=== PATIENT | male | born 1960 | race Caucasian/White ===

== ENCOUNTER → 2019-03-21 13:18 | Outpatient (CLI) | payer OTHER, SELFPAY ==
--- NOTE | 2019-03-21 13:54 | DI.RAD.S_ITS ---
PROCEDURE: XR ORBIT RT INDICATIONS: R/o metal in soft tissue prior to MRI TECHNIQUE: Single view of the orbits acquired. COMPARISON: None. FINDINGS: Bones: No fractures; orbital rims appear intact throughout. No suspicious bony lesions. Visualized sinuses appear clear. Soft tissues: No suspicious soft tissue calcifications or densities. IMPRESSION: No metallic foreign body over the orbits is seen. Dictated by: iSmone Mcgovern M.D. on 03/21/2019 at 15:37 Approved by: Simone Mcgovern M.D. on 03/21/2019 at 15:38
--- NOTE | 2019-03-21 13:54 | DI.RAD.S_ITS ---
PROCEDURE: XR ORBIT LT INDICATIONS: R/o metal in soft tissue prior to MRI TECHNIQUE: Single view of the orbits acquired. COMPARISON: None. FINDINGS: Bones: No fractures; orbital rims appear intact throughout. No suspicious bony lesions. Visualized sinuses appear clear. Soft tissues: No suspicious soft tissue calcifications or densities. IMPRESSION: No metallic foreign body found. Dictated by: Simone Mcgovern M.D. on 03/21/2019 at 15:38 Approved by: Simone Mcgovern M.D. on 03/21/2019 at 15:38
[2019-03-21 15:15] LABS: BUN Creatinine Ratio 14.2 (6-22); Blood Urea Nitrogen 17 mg/dL (9-20); Calcium 9.3 mg/dL (8.4-10.2); Carbon Dioxide 29 mmol/L (22-32); Chloride 100 mmol/L (98-107); Cholesterol 207 mg/dL (140-199); Estimated Glomerular Filt Rate > 60.0 mL/min (>60); Glucose 84 mg/dL (70-100); HDL Cholesterol 43 mg/dL (40-60); HEMOLYSIS < 15 (0-50); LDL Cholesterol Calculated 148 mg/dL (<100); Potassium 4.4 mmol/L (3.4-5.1); Sodium 137 mmol/L (137-145); Triglycerides 82 mg/dL (35-150)
[2019-03-21 16:34] LABS: TSH w/ Reflex to FT4 1.84 uIU/mL (0.47-4.68)
== END ==
PROVIDERS: PCP Student in an Organized Health Care Education/Training Program; Referring Provider Student in an Organized Health Care Education/Training Program; Visit Provider Student in an Organized Health Care Education/Training Program
DX: Z13.220 Encounter for screening for lipoid disorders (principal); E29.1 Testicular hypofunction; R53.83 Other fatigue; E66.9 Obesity, unspecified; Z79.899 Other long term (current) drug therapy; Z18.10 Retained metal fragments, unspecified
CPT/HCPCS: 36415; 70200; 80048; 80061; 84443

== ENCOUNTER 2020-01-14 15:05 | Emergency (ER) | payer OTHER, SELFPAY ==
[2020-01-14 15:12] VITALS: BP 163/86; PULSE 63; RESP 16; TEMP 37; O2SAT 98
--- NOTE | 2020-01-14 18:10 | ED.SKABFB ---
HPI - Skin/Abscess/Foreign Bdy General Chief complaint: Skin/Abscess/Foreign Body Stated complaint: Infection in Right Buttox, Not Getting Better Time Seen by Provider: 01/14/20 18:05 Source: patient Mode of arrival: Ambulatory Limitations: no limitations History of Present Illness HPI narrative: 59-year-old male nonsmoker without significant chronic medical problems presents with his and the chief complaint of a worsening abscess on his right buttock. He gives himself testosterone shots in his buttocks in the region of the abscess and it seems likely that this is the source. He denies any chance of broken needle. He has been followed by his PCP and had an I&D and a 10 day course of Doxycycline which he completed a few days ago. He was initially doing much better but some pain and swelling has returned and there is some subtle red streaking coming from the area. He denies any systemic 5 findings such as fever, chills nor nausea or vomiting. He denies much in the way of significant pain or ongoing drainage. She had attempted to see his primary care provider this morning and was seen by the nurse practitioner in the office. After evaluating and consulting with primary physician they agreed to attempt to get an urgent outpatient CT scan to evaluate for significant deep space infection. When they were unsuccessful in obtaining this he was directed to the emergency department. complaint: abscess/boil Onset (ago): week(s) Tetanus up to date: yes Location: buttocks Severity: moderate Quality: aching Pain Consistency: now resolved Relieving factors: none Exacerbating factors: none Context: recent antibiotic Associated symptoms: denies other symptoms Treatments prior to arrival: antibiotic Related Data Previous Rx's Medication Instructions Recorded epinephrine 0.3 mg/0.3 mL 0.3 mg IM ONCE #1 each 06/26/19 injection, auto-injector testosterone cypionate 200 mg/mL 200 mg IM Q2W #5 ml 08/29/19 intramuscular oil doxycycline hyclate 100 mg PO BID #20 tab 01/14/20 Allergies Allergy/AdvReac Type Severity Reaction Status Date / Time Penicillins Allergy Mild rash Verified 01/14/20 08:28 Review of Systems Constitutional Constitutional: Denies chills, Denies fatigue, Denies fever(s), Denies frequent falls, Denies lethargy and Denies weakness Eyes Eyes: Denies change in vision, Denies eye discharge, Denies irritation and Denies loss of vision ENT Ears, Nose, Mouth, and Throat: Denies change in voice, Denies dizziness, Denies neck pain, Denies sore throat and Denies throat swelling Cardiovascular Cardiovascular: Denies chest pain, Denies irregular heart rhythm, Denies lightheadedness, Denies palpitations, Denies dyspnea, Denies dyspnea on exertion and Denies orthopnea Respiratory Respiratory: Denies cough, Denies dyspnea, Denies dyspnea on exertion and Denies wheezing Gastrointestinal Gastrointestinal: Denies abdominal pain, Denies change in bowel habits, Denies diarrhea, Denies nausea and Denies vomiting Musculoskeletal Musculoskeletal: Denies neck pain and Denies numbness Integumentary/Breasts Skin/Breast: Denies pruritus, Reports erythema, Denies rash, Reports skin pain, Reports skin swelling and Reports wounds Neurologic Neurologic: Denies behavioral changes, Denies confusion, Denies dizziness, Denies frequent falls, Denies loss of vision, Denies numbness and Denies weakness Psychiatric Psychiatric: Denies anxiety, Denies behavioral changes, Denies confusion, Denies depression, Denies homicidal ideation and Denies suicidal ideation Endocrine Endocrine: Denies fatigue, Denies flushing and Denies palpitations Hematologic/Lymphatic Hematologic/Lymphatic: Denies easy bruising Allergic/Immunologic Allergic/Immunologic: Denies urticaria, Denies throat swelling and Denies wheezing Patient History Medical History Cellulitis Chicken pox (~1975) Colon polyps (~2008) Scoliosis (~1974) Surgical History Anesthesia History of colonoscopy Family History Father Diabetes mellitus History of heart disease Social History Smoking Status: Never smoker Smoking Status: Never smoker Exam Narrative Exam Narrative: GEN: AOx3 and in mild distress EYES: Pupils are equal, round, and reactive to light and accommodation. Extraoccular muscles are intact bilaterally. There is no subconjunctival hemorrhage or exudate. CHEST: Lungs are clear to auscultation bilaterally and free of wheezes, rales, or rhonchi. Heart rate is regular rhythm, there are no murmurs, clicks, rubs, or gallops. There is no chest wall tenderness. ABD: Abdomen is soft and nontender. There is no guarding or rebound. Bowel sounds are normal in all 4 quadrants. There is no mass or organomegaly. EXT: Full painless ROM of all extremities with no loss of sensation or strength. SKIN: 2x2 cm area of erythema, induration consistent with abscess. Very minimal surrounding erythema. Minimal fluctuance. No pain on deep palpation of surrounding tissue. No pain with ambulation, low suspicion of a deepspace infection. Otherwise visible skin is warm, pink, and dry. No erythema or rash Initial Vital Signs Initial Vital Signs: Vital Signs Temperature 98.6 F 01/14/20 15:12 Pulse Rate 63 01/14/20 15:12 Respiratory Rate 16 01/14/20 15:12 Blood Pressure 163/86 H 01/14/20 15:12 Pulse Oximetry 98 01/14/20 15:12 Procedures Abscess I/D I&D #1: Site: other (R lateral buttock) Side (if applicable): right Local Anesthetic: bupivacaine 0.5% and with epi Amount of anesthesia used (mL): 4 Technique: incised with #11 blade Amount of fluid expressed (mL): 8 Irrigation: No Packing used?: none Course Orders Ordered: ED Orders 01/14/20 18:38 CT pelvis w con Stat 01/14/20 19:00 Basic Metabolic Panel Stat Complete Blood Count AUTO DIFF Stat Discontinued Medications Bupivacaine HCl/Epinephrine Bitart (Bupivacaine 0.5% W/ Epi (Pf) 30 Ml Vial) 5 ml SUBCUT NOW ONE Stop: 01/14/20 20:16 Last Admin: 01/14/20 20:23 Dose: 5 ml Documented by: MARY KAY Doxycycline Hyclate (Doxycycline Hyclate 100 Mg Tablet) 100 mg PO NOW ONE Stop: 01/14/20 20:26 Last Admin: 01/14/20 20:44 Dose: 100 mg Documented by: MARY KAY Sodium Chloride (Normal Saline 0.9%) 500 mls @ 1,000 mls/hr IV BOLUS ONE Stop: 01/14/20 19:06 Last Infusion: 01/14/20 20:20 Dose: 0 mls/hr Documented by: MARY KAY Admin: 01/14/20 19:36 Dose: 1,000 mls/hr Documented by: MARY KAY Vital Signs Vital signs: Vital Signs - 8 hr 01/14/20 20:47 Pulse Rate 53 L Respiratory Rate 16 Blood Pressure 162/93 H Pulse Oximetry 100 MDM - Skin/Abscess/Foreign Bdy Lab Data Result diagrams: 01/14/20 19:00 01/14/20 19:00 Labs: Lab Results 01/14/20 01/14/20 Range/Units 19:00 19:00 WBC 9.0 (4.5-11.0) X10^3/uL RBC 5.15 (4.5-5.9) X10^6/uL Hgb 15.6 (13.5-17.5) g/dL Hct 46.4 (41-53) % MCV 90.0 (80-100) fL MCH 30.3 (26-34) PG MCHC 33.6 (30-36) % RDW 13.7 (11.6-14.8) % Plt Count 250 (150-400) X10^3/uL Neut % (Auto) 61.9 (50-75) % Lymph % (Auto) 28.7 (25-40) % [place] % (Auto) 7.3 (3-14) % Eos % (Auto) 1.4 L (2-4) % Baso % (Auto) 0.7 (0-2) % Neut # (Auto) 5600 (2671-9956) /uL Lymph # (Auto) 2600 (8025-4156) /uL [place] # (Auto) 700 (0-900) /uL Eos # (Auto) 100 (0-450) /uL Baso # (Auto) 100 (0-100) /uL Sodium 139 (137-145) mmol/L Potassium 4.2 (3.4-5.1) mmol/L Chloride 105 (98-107) mmol/L Carbon Dioxide 27 (22-32) mmol/L BUN 23 H (9-20) mg/dL Creatinine 1.03 (0.66-1.25) mg/dL Estimated GFR > 60.0 (>60) mL/min BUN/Creatinine Ratio 22.3 H (6-22) Glucose 93 (70-100) mg/dL Calcium 8.9 (8.4-10.2) mg/dL Imaging Data CT scan - abdomen/pelvis: Radiologist's Impression: Chart Viewer Diagnostics DATE TYPE STATUS REF RANGE/AUTHOR Hx 01/14/20 18:38 Dk Johnson 03/21/19 13:54 Simone Mcgovern 03/21/19 13:54 Simone Mcgovern Jason Robbins 59, M1 [facility] ER, Main ED 103.419kg Skin/Abscess/Foreign Body Search Chart No Data to Display rash ONSET ~197401/14/20 20:47 Jason Robbins 59 M [address] [id number] Scan ReportSigned Patient: Jason Robbins CMR#: [id number]: 1960cct:[id number]/Sex: 59 / MDate of Service: 01/14/20Loc: EDAccession Number: [id number] Procedure: CT pelvis w con Ordering Provider: Juanpablo Downey D.O. PROCEDURE: CT PELVIS W CON INDICATIONS: chronic, worsening R buttock abscess TECHNIQUE: After the administration of intravenous contrast, 5 mm thick sections acquired from the iliac crests to the symphysis. 5 mm coronal and sagittal reformats were acquired. For radiation dose reduction, the following was used: automated exposure control, adjustment of mA and/or kV according to patient size. COMPARISON: None. FINDINGS: Image quality: Excellent. Peritoneum and bowel: Bowel loops demonstrate normal wall thickness and caliber. No free fluid or air. Colonic diverticulosis is seen without evidence of acute complication. Genitourinary: Bladder wall thickness is normal. Nodes and vessels: No iliac, pelvic, or inguinal adenopathy by size criteria. Iliac vessels demonstrate normal size and enhancement. Bones: No suspicious bony lesions. Miscellaneous: Small subcutaneous fluid collection measuring 0.8 by 2.1 cm, with mildly loculated appearance IMPRESSION: Small subcutaneous abscess within the right gluteal region as above. Dictated by: Dk Johnson M.D. on 01/14/2020 at 20:06 Approved by: Dk Johnson M.D. on 01/14/2020 at 20:09 Discharge Plan Departure Patient Disposition: Home Clinical Impression: Abscess of right buttock Instructions: DI for Skin Abscess Activity Restrictions/Additional Instructions: *You have been diagnosed with [superficial abscess right buttock with minimal surrounding cellulitis] *What to do: *Take medications as directed: Prescription [facility] to [facility] *Follow up with your primary care provider in 2-3 days, call for an appointment. Let them know you were seen in the Emergency Department and that we ask that you be seen in follow up *Return to ER if you should have any new, worsening or concerning symptoms, such as [increasing pain, fever greater than 101, vomiting or other bothersome symptoms] Prescriptions: New doxycycline hyclate 100 mg tablet 100 mg PO BID Qty: 20 RF: 0 No Action epinephrine [EpiPen] 0.3 mg/0.3 mL auto-injector 0.3 mg IM ONCE Qty: 1 RF: 5 testosterone cypionate [Depo-Testosterone] 200 mg/mL oil 200 mg IM Q2W Qty: 5 RF: 2 Referrals: Stone Gilbert MD [Primary Care Provider] -
--- NOTE | 2020-01-14 18:38 | DI.CT.S_ITS ---
PROCEDURE: CT PELVIS W CON INDICATIONS: chronic, worsening R buttock abscess TECHNIQUE: After the administration of intravenous contrast, 5 mm thick sections acquired from the iliac crests to the symphysis. 5 mm coronal and sagittal reformats were acquired. For radiation dose reduction, the following was used: automated exposure control, adjustment of mA and/or kV according to patient size. COMPARISON: None. FINDINGS: Image quality: Excellent. Peritoneum and bowel: Bowel loops demonstrate normal wall thickness and caliber. No free fluid or air. Colonic diverticulosis is seen without evidence of acute complication. Genitourinary: Bladder wall thickness is normal. Nodes and vessels: No iliac, pelvic, or inguinal adenopathy by size criteria. Iliac vessels demonstrate normal size and enhancement. Bones: No suspicious bony lesions. Miscellaneous: Small subcutaneous fluid collection measuring 0.8 by 2.1 cm, with mildly loculated appearance IMPRESSION: Small subcutaneous abscess within the right gluteal region as above. Dictated by: Dk Johnson M.D. on 01/14/2020 at 20:06 Approved by: Dk Johnson M.D. on 01/14/2020 at 20:09
[2020-01-14 19:08] LABS: Add Manual Diff / Slide Review NO; Basophils Absolute Auto 100 /uL (0-100); Basophils Percent Auto 0.7 % (0-2); Eosinophils Absolute Auto 100 /uL (0-450); Eosinophils Percent Auto 1.4 % (2-4); Hematocrit 46.4 % (41-53); Hemoglobin 15.6 g/dL (13.5-17.5); Lymphocytes Absolute Auto 2600 /uL (1100-4500); Lymphocytes Percent Auto 28.7 % (25-40); Mean Corpuscular HGB Conc 33.6 % (30-36); Mean Corpuscular Hemoglobin 30.3 PG (26-34); Monocytes Absolute Auto 700 /uL (0-900); Monocytes Percent Auto 7.3 % (3-14); Neutrophils Absolute Auto 5600 /uL (1500-7000); Neutrophils Percent Auto 61.9 % (50-75); Platelet Count 250 X10^3/uL (150-400); Red Blood Cell Count 5.15 X10^6/uL (4.5-5.9); Red Cell Distribution Width 13.7 % (11.6-14.8)
[2020-01-14 19:20] LABS: BUN Creatinine Ratio 22.3 (6-22); Blood Urea Nitrogen 23 mg/dL (9-20); Calcium 8.9 mg/dL (8.4-10.2); Carbon Dioxide 27 mmol/L (22-32); Chloride 105 mmol/L (98-107); Estimated Glomerular Filt Rate > 60.0 mL/min (>60); Glucose 93 mg/dL (70-100); HEMOLYSIS < 15 (0-50); Potassium 4.2 mmol/L (3.4-5.1); Sodium 139 mmol/L (137-145)
[2020-01-14] MEDS: SODIUM CHLORIDE 0.9% 500 ML 1000 ML IV (19:36)
[2020-01-14] MEDS: BUPIVACAINE 0.5% W/ EPI (PF) 30 ML VIAL 5 ML SUBCUT (20:23)
[2020-01-14] MEDS: DOXYCYCLINE HYCLATE 100 MG TABLET PO (20:44)
[2020-01-14 20:47] VITALS: BP 162/93; PULSE 53; RESP 16; O2SAT 100
== END 2020-01-14 20:56 | disposition home or self-care (01) ==
PROVIDERS: Emergency Provider Emergency Medicine; PCP Student in an Organized Health Care Education/Training Program
DX: L02.31 Cutaneous abscess of buttock (principal)
CPT/HCPCS: 10060; 36415; 72193; 80048; 85025; 96360; 99283; 99284; Q9967

== ENCOUNTER → 2020-07-09 08:05 | Outpatient (CLI) | payer OTHER, SELFPAY ==
[2020-07-09 09:59] LABS: Hematocrit 48.4 % (41-53); Hemoglobin 16.3 g/dL (13.5-17.5); Mean Corpuscular HGB Conc 33.7 % (30-36); Mean Corpuscular Hemoglobin 30.6 PG (26-34); Mean Corpuscular Volume 90.8 fL (80-100); Platelet Count 230 X10^3/uL (150-400); Red Blood Cell Count 5.33 X10^6/uL (4.5-5.9); Red Cell Distribution Width 14.1 % (11.6-14.8); White Blood Cell Count 7.4 X10^3/uL (4.5-11.0)
[2020-07-10 04:05] LABS: Prostate Specific Antigen Scrn 0.886 ng/mL (0.1-4.0)
[2020-07-10 04:07] LABS: Testosterone 859 ng/dL (71.8-623)
== END ==
PROVIDERS: PCP Student in an Organized Health Care Education/Training Program; Referring Provider Student in an Organized Health Care Education/Training Program; Visit Provider Student in an Organized Health Care Education/Training Program
DX: Z12.5 Encounter for screening for malignant neoplasm of prostate (principal); E29.1 Testicular hypofunction; Z79.899 Other long term (current) drug therapy
CPT/HCPCS: 36415; 84403; 85027; G0103

== ENCOUNTER → 2020-09-05 07:33 | Outpatient (CLI) | payer OTHER, SELFPAY ==
[2020-09-12 17:11] LABS: Percent Free Testosterone 2.77 % (1.50-4.20); Testosterone Free 8.44 ng/dL (5.00-21.00); Testosterone Total 304.8 ng/dL (264.0-916.0)
== END ==
PROVIDERS: PCP Student in an Organized Health Care Education/Training Program; Referring Provider Student in an Organized Health Care Education/Training Program; Visit Provider Student in an Organized Health Care Education/Training Program
DX: E29.1 Testicular hypofunction (principal)
CPT/HCPCS: 36415; 84402; 84403

== ENCOUNTER → 2021-06-16 12:10 | Outpatient (CLI) | payer OTHER, SELFPAY ==
[2021-06-16 13:14] LABS: Hematocrit 47.1 % (41-53); Hemoglobin 16.2 g/dL (13.5-17.5); Mean Corpuscular HGB Conc 34.3 % (30-36); Mean Corpuscular Hemoglobin 30.8 PG (26-34); Mean Corpuscular Volume 89.8 fL (80-100); Platelet Count 229 X10^3/uL (150-400); Red Blood Cell Count 5.25 X10^6/uL (4.5-5.9); Red Cell Distribution Width 14.6 % (11.6-14.8); White Blood Cell Count 7.7 X10^3/uL (4.5-11.0)
[2021-06-16 13:25] LABS: BUN Creatinine Ratio 16.3 (6-22); Blood Urea Nitrogen 20 mg/dL (9-20); Calcium 9.3 mg/dL (8.4-10.2); Carbon Dioxide 28 mmol/L (22-32); Chloride 105 mmol/L (98-107); Estimated Glomerular Filt Rate > 60 mL/min (>60); Glucose 101 mg/dL (80-110); HEMOLYSIS < 15 (0-50); Potassium 4.4 mmol/L (3.4-5.1); Sodium 142 mmol/L (137-145)
[2021-06-16 13:54] LABS: Prostate Specific Antigen Scrn 0.901 ng/mL (0.1-4.0)
[2021-06-16 13:57] LABS: Testosterone 204 ng/dL (71.8-623)
== END ==
PROVIDERS: PCP Student in an Organized Health Care Education/Training Program; Referring Provider Student in an Organized Health Care Education/Training Program; Visit Provider Student in an Organized Health Care Education/Training Program
DX: E29.1 Testicular hypofunction (principal); R03.0 Elevated blood-pressure reading, without diagnosis of hypertension; Z12.5 Encounter for screening for malignant neoplasm of prostate
CPT/HCPCS: 36415; 80048; 84403; 85027; G0103

== ENCOUNTER → 2021-07-14 15:54 | Outpatient (CLI) | payer OTHER, SELFPAY ==
[2021-07-14 17:10] LABS: Appearance Urine UA CLEAR; Bilirubin Urine UA NEGATIVE (NEGATIVE); Color Urine UA YELLOW; Glucose Urine UA NEGATIVE (Negative); Ketones Urine UA NEGATIVE (NEGATIVE); Leukocyte Esterase Urine UA NEGATIVE (NEGATIVE); Nitrite Urine UA NEGATIVE (Negative); Occult Blood Urine UA TRACE-INTACT (Negative); Protein Urine UA NEGATIVE (Negative); Specific Gravity Urine UA 1.025 (1.000-1.035); Urobilinogen Urine UA 0.2 E.U./dL (0.2); pH Urine UA 5.5 (4.5-8.0)
[2021-07-14 17:24] LABS: Bacteria Urine None Seen; Culture Indicated Urine Cult Not Indicated; RBC Urine 1-5/HPF (0-5/HPF); WBC Urine None Seen (0-5/HPF)
== END ==
PROVIDERS: PCP Student in an Organized Health Care Education/Training Program; Referring Provider Student in an Organized Health Care Education/Training Program; Visit Provider Student in an Organized Health Care Education/Training Program
DX: M54.50 Low back pain, unspecified (principal)
CPT/HCPCS: 81001

== ENCOUNTER → 2022-12-27 08:46 | Outpatient (CLI) | payer OTHER, SELFPAY ==
[2022-12-27 09:47] LABS: Hemoglobin A1C% w Est Avg Glu 6.3 % (4.0-6.0)
[2022-12-27 09:54] LABS: Alanine Aminotransferase 48 IU/L (<50); Albumin 4.4 g/dL (3.5-5.0); Albumin Globulin Ratio 1.2 (1.0-2.8); Alkaline Phosphatase 77 U/L (38-126); Aspartate Aminotransferase 36 IU/L (17-59); BUN Creatinine Ratio 20.5 (6-22); Bilirubin Total 0.8 mg/dL (0.2-1.3); Blood Urea Nitrogen 23 mg/dL (9-20); Calcium 9.8 mg/dL (8.4-10.2); Carbon Dioxide 27 mmol/L (22-32); Chloride 103 mmol/L (98-107); Cholesterol 234 mg/dL (140-199); Estimated Glomerular Filt Rate > 60 mL/min (>60); Globulin 3.7 g/dL (1.7-4.1); Glucose 112 mg/dL (80-110); HDL Cholesterol 47 mg/dL (40-60); HEMOLYSIS < 15 (0-50); LDL Cholesterol Calculated 151 mg/dL (<100); Sodium 138 mmol/L (137-145); Total Protein 8.1 g/dL (6.3-8.2); Triglycerides 179 mg/dL (35-150)
== END ==
PROVIDERS: PCP Family Medicine; Referring Provider Family Medicine; Visit Provider Family Medicine
DX: E78.00 Pure hypercholesterolemia, unspecified (principal); R03.0 Elevated blood-pressure reading, without diagnosis of hypertension
CPT/HCPCS: 36415; 80053; 80061; 83036

== ENCOUNTER 2023-03-07 08:03 | Day surgery (SDC) | payer OTHER, SELFPAY ==
[2023-03-07 09:13] VITALS: BP 138/99; PULSE 58; RESP 16; TEMP 36.1; O2SAT 95
[2023-03-07] MEDS: LACTATED RINGERS 1,000 ML 42 ML IV (09:22)
--- NOTE | 2023-03-07 09:34 | PM.HP.1 ---
History of Present Illness History of Present Illness Date Patient Seen: 03/07/23 Time Patient Seen: 09:34 Chief complaint: Screening Colonoscopy Narrative: This is a 3rd colonoscopy. His original colonoscopy showed 2 polyps and he has not had any since that time. No symptoms, no family history PFSH Medical History IFG (impaired fasting glucose) Cellulitis Scoliosis (~1974) Chicken pox (~1975) Colon polyps (~2008) Surgical History Anesthesia History of colonoscopy Family History Father Diabetes mellitus History of heart disease Social History Smoking Status: Never smoker alcohol intake: never Meds Home Medications and Allergies Home Medications Medication Instructions Recorded Confirmed Type epinephrine 0.3 mg/0.3 mL 0.3 mg (0.3 mL) IM ONCE #1 ea 07/16/21 03/07/23 Rx injection, auto-injector (EpiPen) acetaminophen 325 mg capsule 650 mg PO Q6H PRN Pain (Scale 01/14/23 03/07/23 History (Tylenol) Score 1-3) ibuprofen 200 mg tablet 400 mg PO Q8H 01/14/23 03/07/23 History metformin 500 mg tablet,extended 1,000 mg (2 x 500 mg) PO DAILY #60 01/14/23 03/07/23 Rx release 24 hr tabs Allergies Allergy/AdvReac Type Severity Reaction Status Date / Time Penicillins Allergy Mild rash Verified 03/07/23 09:23 Review of Systems Review of Systems ROS: Yes All systems reviewed with the patient and are negative except as otherwise documented Exam Vital Signs (past 8 hours): - 03/07/23 09:13 Temperature 97.0 F L Pulse Rate 58 L Respiratory Rate 16 Blood Pressure 138/99 H Pulse Oximetry 95 Oxygen Delivery Method Room Air Oxygen Delivery Method Room Air Const General: cooperative and healthy appearing [facility] Head: normocephalic and atraumatic Eyes General: appearance normal, both eyes and all related structures Sclera: sclerae normal Neck Neck: trachea midline and No JVD Resp Effort & Inspection: normal respiratory effort and able to speak in complete sentences Cardio Rate: regular rate Rhythm: regular rhythm GI Palpation: soft and No tender Skin General: elasticity normal and turgor normal Neuro General: patient alert, patient awake and patient oriented x3 Cognition: normal cognition Psych Mental Status: mental status grossly normal Speech and Movement: speech and movement normal Attitude: cooperative Judgment: judgment good Assessment & Plan Assessment & Plan narrative: History of colon polyps on original colonoscopy. Plan colonoscopy with anesthesia Time Spent With Patient Time with patient: less than 30 minutes
--- NOTE | 2023-03-07 09:59 | PM.OP.COLON ---
Operative Date/Time/Diagnoses Date of procedure: 03/07/23 Time of procedure: 10:00 Pre-op diagnosis: Colon cancer screening this is a history of colon polyps Post-op diagnosis: same Procedure & Clinicians Study performed: Colonoscopy with anesthesia Same procedure as scheduled: Yes Indications: Colon cancer screening Surgeon: Mikala Russell Procedure Notes Procedure in detail: Preop diagnosis: Colon cancer screening Postop diagnosis: Same Operative procedure: Colonoscopy with anesthesia Surgeon: Martha Russell MD Findings: Normal colonoscopy. He does have small diverticuli of the descending colon, no polyps. Procedure: Patient placed in lateral position. Rectal exam performed showing normal tone no masses. Colonoscope inserted into the rectum and advanced to ileocecal valve with minimal difficulty. Insufflation and extraction of the scope including retroflex in the rectum had the above findings Impression: No polyps identified. Small diverticuli of the descending colon. Plan: Repeat colonoscopy in 10 years unless otherwise indicated by change in clinical condition Findings: divertiulosis Specimen(s): none sent Complications: none Post-procedure Recommendations: Colonoscopy in 10 years Follow up: as needed Disposition: PACU
[2023-03-07 10:02] VITALS: BP 105/71; PULSE 68; RESP 18; TEMP 36.4; O2SAT 98
[2023-03-07 10:07] VITALS: BP 106/74; PULSE 68; RESP 16; O2SAT 98
[2023-03-07 10:12] VITALS: BP 105/66; PULSE 78; RESP 16; O2SAT 98
[2023-03-07 10:16] VITALS: BP 93/63; PULSE 72; RESP 16; TEMP 36.2; O2SAT 98
[2023-03-07 10:18] VITALS: BP 104/72; PULSE 61; RESP 16; TEMP 36.2; O2SAT 98
== END 2023-03-07 10:31 | disposition home or self-care (01) ==
PROVIDERS: PCP Family Medicine; Referring Provider Surgery; Visit Provider Surgery
PROC: 0DJD8ZZ Inspection of Lower Intestinal Tract, Via Natural or Artificial Opening Endoscopic (ICD-10-PCS; CPT 45378; principal; 2023-03-07 09:15)
DX: Z12.11 Encounter for screening for malignant neoplasm of colon (principal); Z86.010 Personal history of colon polyps; K57.30 Diverticulosis of large intestine without perforation or abscess without bleeding
CPT/HCPCS: 45378; J2704

== ENCOUNTER → 2023-04-12 06:52 | Outpatient (CLI) | payer OTHER, SELFPAY ==
[2023-04-12 08:22] LABS: Hemoglobin A1C% w Est Avg Glu 5.9 % (4.0-6.0)
== END ==
PROVIDERS: PCP Family Medicine; Referring Provider Family Medicine; Visit Provider Family Medicine
DX: R73.01 Impaired fasting glucose (principal)
CPT/HCPCS: 36415; 83036

== ENCOUNTER 2023-07-26 17:55 | Emergency (ER) | payer OTHER, SELFPAY ==
[2023-07-26 18:04] VITALS: BP 131/83; PULSE 69; RESP 18; TEMP 36.8; O2SAT 97; BMI 28.3
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
[2023-07-26] MEDS: KETOROLAC 30 MG/ML VIAL IM (18:39)
== END 2023-07-26 18:44 | disposition home or self-care (01) ==
PROVIDERS: Emergency Provider Student in an Organized Health Care Education/Training Program; PCP Family Medicine
DX: M54.2 Cervicalgia (principal); V87.7XXA Person injured in collision between other specified motor vehicles (traffic), initial encounter
CPT/HCPCS: 96372; 99283; J1885

== ENCOUNTER → 2023-11-28 11:14 | Outpatient (CLI) | payer BC, SELFPAY | PROVIDERS: PCP Family Medicine; Visit Provider Physician Assistant Surgical | DX: R30.0 Dysuria (principal); N94.89 Other specified conditions associated with female genital organs and menstrual cycle | CPT/HCPCS: 87086; 87210 ==

== ENCOUNTER → 2023-12-14 07:16 | Outpatient (CLI) | payer BC, SELFPAY ==
[2023-12-14 08:17] LABS: Hematocrit 45.6 % (41-53); Hemoglobin 15.2 g/dL (13.5-17.5); Mean Corpuscular HGB Conc 33.3 % (30-36); Mean Corpuscular Hemoglobin 29.9 PG (26-34); Mean Corpuscular Volume 89.8 fL (80-100); Platelet Count 244 X10^3/uL (150-400); Red Blood Cell Count 5.08 X10^6/uL (4.5-5.9); Red Cell Distribution Width 13.6 % (11.6-14.8); White Blood Cell Count 7.1 X10^3/uL (4.5-11.0)
[2023-12-14 08:30] LABS: Hemoglobin A1C% w Est Avg Glu 6.1 % (4.0-6.0)
[2023-12-14 08:40] LABS: Alanine Aminotransferase 42 IU/L (<50); Albumin 4.1 g/dL (3.5-5.0); Albumin Globulin Ratio 1.4 (1.0-2.8); Alkaline Phosphatase 78 U/L (38-126); Aspartate Aminotransferase 31 IU/L (17-59); Bilirubin Total 0.7 mg/dL (0.2-1.3); Blood Urea Nitrogen 20 mg/dL (9-20); Calcium 9.4 mg/dL (8.4-10.2); Carbon Dioxide 27 mmol/L (22-32); Chloride 105 mmol/L (98-107); Cholesterol 202 mg/dL (140-199); Estimated Glomerular Filt Rate > 60 mL/min (>60); Glucose 108 mg/dL (80-110); HDL Cholesterol 47 mg/dL (40-60); HEMOLYSIS < 15 (0-50); LDL Cholesterol Calculated 128 mg/dL (<100); Potassium 4.6 mmol/L (3.4-5.1); Sodium 138 mmol/L (137-145); Total Protein 7.1 g/dL (6.3-8.2); Triglycerides 133 mg/dL (35-150)
[2023-12-14 09:09] LABS: Prostate Specific Antigen Scrn 1.07 ng/mL (0.1-4.0)
[2023-12-15 15:46] LABS: HIV 1 & 2 Ab/Ag 4th Gen Combo NEGATIVE (NEGATIVE); Hep C Virus Ab w/Reflex Quant NEGATIVE s/c (NEGATIVE)
== END ==
PROVIDERS: PCP Family Medicine; Referring Provider Family Medicine; Visit Provider Family Medicine
DX: R73.01 Impaired fasting glucose (principal); E78.00 Pure hypercholesterolemia, unspecified; T78.40XA Allergy, unspecified, initial encounter; Z12.5 Encounter for screening for malignant neoplasm of prostate; Z11.59 Encounter for screening for other viral diseases; E29.1 Testicular hypofunction; Z11.4 Encounter for screening for human immunodeficiency virus [HIV]; R10.2 Pelvic and perineal pain
CPT/HCPCS: 36415; 80053; 80061; 83036; 85027; 86803; 87389; G0103

== ENCOUNTER → 2024-07-12 06:41 | Outpatient (CLI) | payer BC, SELFPAY ==
[2024-07-12 07:51] LABS: Hemoglobin A1C% w Est Avg Glu 5.8 % (4.0-6.0)
== END ==
PROVIDERS: PCP Family Medicine; Referring Provider Family Medicine; Visit Provider Family Medicine
DX: R73.01 Impaired fasting glucose (principal)
CPT/HCPCS: 36415; 83036

== ENCOUNTER → 2025-01-30 06:45 | Outpatient (CLI) | payer BC, SELFPAY ==
[2025-01-30 08:26] LABS: Hemoglobin A1C% w Est Avg Glu 5.8 % (4.0-6.0)
[2025-01-30 08:28] LABS: Alanine Aminotransferase 38 IU/L (<50); Albumin 4.4 g/dL (3.5-5.0); Albumin Globulin Ratio 1.5 (1.0-2.8); Alkaline Phosphatase 81 U/L (38-126); Blood Urea Nitrogen 23 mg/dL (9-20); Calcium 9.0 mg/dL (8.4-10.2); Carbon Dioxide 27 mmol/L (22-32); Chloride 106 mmol/L (98-107); Cholesterol 209 mg/dL (140-199); Estimated Glomerular Filt Rate > 60 mL/min (>60); Globulin 2.9 g/dL (1.7-4.1); Glucose 96 mg/dL (70-99); HDL Cholesterol 56 mg/dL (40-60); HEMOLYSIS < 15 (0-50); Potassium 4.8 mmol/L (3.4-5.1); Sodium 139 mmol/L (137-145); Total Protein 7.3 g/dL (6.3-8.2); Triglycerides 108 mg/dL (35-150)
== END ==
PROVIDERS: PCP Family Medicine; Referring Provider Family Medicine; Visit Provider Family Medicine
DX: Z12.5 Encounter for screening for malignant neoplasm of prostate (principal); R73.01 Impaired fasting glucose; E78.00 Pure hypercholesterolemia, unspecified
CPT/HCPCS: 36415; 80053; 80061; 83036; G0103